=== PATIENT | female | born 1965 | race Two or more races ===

== ENCOUNTER 2025-05-14 09:17 | Outpatient (AMB) | payer MEDICAID, SELFPAY ==
[2025-05-14 09:31] VITALS: BP 144/85; PULSE 67; RESP 19; TEMP 36.4; O2SAT 98; BMI 32.7
--- NOTE | 2025-05-14 09:31 | PD.ORTHCLVIS ---
Vital signs 05/14/25 09:31 Height 1.55 m Height Method Measured Weight 78.5 kg Weight Measurement Method Standing Scale BMI 32.7 BP 144/85 H Blood Pressure Source Automatic Cuff Blood Pressure Location Left Upper Arm Position Sitting Respiration 19 Pulse 67 Pulse Source Monitor Temp 97.5 F Temp Source Temporal Artery Scan Pulse Oximetry (%) 98 Oxygen Delivery Method Room Air Med/Allergies Allergies & Medications Allergies No Known Allergies Allergy (Verified 05/14/25 09:32) Medication Reconciliation meloxicam 7.5 mg tablet 7.5 mg PO QDAY #45 tabs 05/14/25 [Rx] Exam Exam Breathing is nonlabored. Patient has a normal mood and affect. Bilateral extremities were evaluated and demonstrates sensation intact to light touch. Palpable pedal pulses are present. No significant edema is present. Bilateral hips were examined. The patient has no pain with log roll of the hips. Internal rotation to 30 degrees and external rotation to 30 degrees is painless. Negative FADIR. Left knee was examined today. The left knee is in reasonable alignment. Range of motion from 0-120 degrees. Knee is stable to varus and valgus as well as AP translation with <5mm. Patient has a negative McMurrays. There is no pain with patellofemoral compression and no crepitus noted. The knee is nontender to palpation. The right knee was also examined. The right knee is in varus alignment. Range of motion from 0-115 degrees. Knee is stable to varus and valgus as well as AP translation with <5mm. Patient has a positive McMurrays. There is no pain with patellofemoral compression and no crepitus noted. The patient has varicose veins as well and is tender both medially and laterally Assessment and Plan Problem List (1) Pain in right knee: Status: Acute Plan: Patient is a pleasant 60-year-old female with right knee pain. There is mechanical symptoms and she is having significant issues walking. I discussed with her this is likely early arthritis versus a meniscal tear versus a bone contusion or a stress fracture. The pain is actually out of proportion with the x-rays x-ray does not show significant arthritis but she has significant pain. I would like to get an MRI of the right knee to evaluate for other pathology such as a subchondral fracture as her pain is out of proportion with exam Office Procedures GNS Level of Care Nursing/Assessment Patient Status: Initial/New Patient Nursing Assessment/Reassesment: Medication Reconciliation, Update PMH in EMR and Vital Signs Coordination of Care: Complex Care and Chronic Disease 1-5, Education Complex Pt/Fam, Consent,records obtained, informed consent, 1 Ins Authorization, Lab and Imaging orders, Results/Orders obtained and Staff clarify orders New Patient Charge New Patient Point Assignment: 1124 New Patient Point Charge: MILLWRIGHT Level 4 ([id number]) MA Intake Visit Data Collection New Patient or Established: New Patient (never been to [facility]) Reason for Visit:: RIGHT KNEE PAIN Seen by Clinical Staff ONLY (RN/MA): No 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 PCP or OBGYN visit in last 3 months: Yes Hx Now: No Do You Feel Safe at Home: Yes Authorities Contacted: N/A Questionairres Past Medical History Past Medical History Have you ever been diagnosed with any of the following: Cardiology Problems Hypercholesterolemia: Yes Respiratory Problems Smoking: No Smoking Cessation Counseling: No Smoking Exposure: No Endocrine Problems Diabetes Mellitus Type 1: Yes (A1C 6.7) Subjective Visit Visit for: new patient and knee (RIGHT) Immunization / Flu Flu Vaccine in the Last 12 Months: No Flu Vaccine Exclusion Criteria: Refused by Patient History of Present Illness Chief complaint: RIGHT KNEE PAIN Date of injury / onset of symptoms: 2 YEARS Patient is a pleasant 60-year-old female with 2 years of right knee pain that has progressed. She had an injection in March and this helped for about 4 weeks. She also tried naproxen and anti-inflammatories. She is diabetic. She reports the pain is affecting her quality life and happiness. She has been having significant issues walking. She is using a cane She reports that her mechanical issues such as locking Personal History Occupation: NONE BMI Counceling provided: Yes Pain Pain level (0-10): 9 Pain duration: ALL DAY Pain location: inside (medial), outside (lateral), anterior and posterior Pain quality: sharp, dull, aching, burning and other (specify) (SWELLING) Pain timing: night, increases with activity and stairs Associated signs & symptoms: stiffness Ambulatory data Ambulatory device: none Treatments Number of previous injections: 1 (LASTED 3 WEEKS RECEIVED 03/26/2025) Improvement with previous injections: No Number of Physical Therapy sessions: 0 Improvement with PT: No Improvement with NSAIDS: no Review of Systems Review of Systems: All systems negative unless otherwise noted in HPI.
== END 2025-05-14 09:52 | disposition home or self-care (01) ==
LOC: HODSRG 09:17
PROVIDERS: PCP Internal Medicine; Referring Provider Internal Medicine; Supervising Provider Orthopaedic Surgery Adult Reconstructive Orthopaedic Surgery; Visit Provider Orthopaedic Surgery Adult Reconstructive Orthopaedic Surgery
DX: M25.561 Pain in right knee (principal); E10.9 Type 1 diabetes mellitus without complications; E78.00 Pure hypercholesterolemia, unspecified
CPT/HCPCS: 99204; G0463

== ENCOUNTER 2025-06-20 08:18 | Outpatient (AMB) | payer MEDICAID, SELFPAY ==
--- NOTE | 2025-06-20 08:36 | PD.ORTHCLVIS ---
Vital signs 06/20/25 08:37 Height 1.55 m Height Method Stated Weight 79.492 kg Weight Measurement Method Standing Scale BMI 33.0 BP 135/83 H Blood Pressure Source Automatic Cuff Blood Pressure Location Left Upper Arm Position Sitting Respiration 19 Pulse 66 Pulse Source Monitor Temp 97.7 F Temp Source Temporal Artery Scan Pulse Oximetry (%) 97 Oxygen Delivery Method Room Air Med/Allergies Allergies & Medications Allergies No Known Allergies Allergy (Verified 06/20/25 08:38) Medication Reconciliation meloxicam 7.5 mg tablet 7.5 mg PO QDAY #45 tabs 05/14/25 [Rx Confirmed 06/20/25] Exam Exam Breathing is nonlabored. Patient has a normal mood and affect. Bilateral extremities were evaluated and demonstrates sensation intact to light touch. Palpable pedal pulses are present. No significant edema is present. Bilateral hips were examined. The patient has no pain with log roll of the hips. Internal rotation to 30 degrees and external rotation to 30 degrees is painless. Negative FADIR. Left knee was examined today. The left knee is in reasonable alignment. Range of motion from 0-120 degrees. Knee is stable to varus and valgus as well as AP translation with <5mm. Patient has a negative McMurrays. There is no pain with patellofemoral compression and no crepitus noted. The knee is nontender to palpation. The right knee was also examined. The right knee is in varus alignment. Range of motion from 0-115 degrees. Knee is stable to varus and valgus as well as AP translation with <5mm. Patient has a positive McMurrays. There is no pain with patellofemoral compression and no crepitus noted. The patient has varicose veins as well and is tender both medially and laterally Imaging - MRI of the right knee: 05/24/2025, Shows a lot of bone marrow edema and contusions, indicating a large bone bruise on the outside and inside of the knee. There is also a lateral meniscus tear on the outside of the knee. Assessment and Plan Problem List (1) Pain in right knee: Status: Acute Plan: Patient is a pleasant 60-year-old female with right knee pain. ASSESSMENT AND PLAN 1. Right knee pain: The MRI dated 05/24/2025 reveals significant bone marrow edema and contusions, indicative of a substantial bone bruise on both the lateral and medial aspects of the knee. This condition is often associated with stress or overuse and can be linked to arthritis. Additionally, a lateral meniscus tear is present, which is not uncommon given her age and leg alignment. The bone contusion typically improves over time, as evidenced by her current state. The meniscus tear, which is causing more discomfort than catching or locking, often heals without surgical intervention. Allow time for the bone contusion to heal naturally. Surgery is not recommended unless the knee begins to catch or lock. Maintain an active lifestyle, using pain as a guide. A weight loss of even 5 pounds could significantly reduce stress on the knee. If needed, another injection can be administered. If the condition continues to improve without intervention, this approach can be maintained. If the condition does not improve, return for further evaluation. Disability is extended until mid-June, after which a gradual return to work can be attempted. Office Procedures GNS Level of Care Nursing/Assessment Patient Status: Established Patient Nursing Assessment/Reassesment: Medication Reconciliation, Update PMH in EMR and Vital Signs Coordination of Care: Complex Care and Chronic Disease 1-5, Education Complex Pt/Fam, Consent,records obtained, informed consent, Results/Orders obtained and Staff clarify orders Established Patient Charge Established Patient Point Assignment: 95 Established Patient Point Charge: EP Level 3 (80-115) MA Intake Visit Data Collection New Patient or Established: Established Patient (seen at [facility] within 3 years) Reason for Visit:: RIGHT KNEE PAIN/MRI RESULTS Seen by Clinical Staff ONLY (RN/MA): No 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 PCP or OBGYN visit in last 3 months: Yes Hx Now: No Do You Feel Safe at Home: Yes Authorities Contacted: N/A Questionairres Past Medical History Past Medical History Have you ever been diagnosed with any of the following: Cardiology Problems Hypercholesterolemia: Yes Respiratory Problems Smoking: No Smoking Cessation Counseling: No Smoking Exposure: No Endocrine Problems Diabetes Mellitus Type 1: Yes (A1C 6.7) Subjective Visit Visit for: new patient, follow up visit, knee (RIGHT) and MRI (RESULTS) Immunization / Flu Flu Vaccine in the Last 12 Months: No Flu Vaccine Exclusion Criteria: Refused by Patient History of Present Illness Chief complaint: RIGHT KNEE PAIN Date of injury / onset of symptoms: 2 YEARS I, Hair Liu, have obtained verbal consent from the patient, to be recorded during this encounter which may include, but not limited to, medical history, examination, treatment plans, and relevant health information.? Patient was informed that recording will be read and reviewed by myself before inclusion in the medical chart. The patient is a 60-year-old female who presents with right knee pain of significant severity. She reports a decrease in her right knee pain, rating it as a 4 on a scale of 10, down from a previous intensity of 9 or 10. The pain is localized to the lateral aspect of her right knee. She has been resting at home and does not recall any specific trauma that could have caused the pain. However, she suspects overuse might be a contributing factor. She describes a sensation of tightness in her knee, which intensifies when she walks. She was last seen on 03/2025, when she received an injection that provided relief for about a month. She was off work for a month due to her condition but returned for two weeks before the pain worsened. Her primary care physician has placed her on disability until mid-06/2025. She has tried oral anti-inflammatory medications, but they did not provide significant relief. Personal History Occupation: NONE BMI Counceling provided: Yes Pain Pain level (0-10): 4 Pain duration: ALL DAY Pain location: inside (medial), outside (lateral), anterior and posterior Pain quality: sharp, dull, aching, burning and other (specify) (SWELLING) Pain timing: night, increases with activity and stairs Associated signs & symptoms: stiffness Ambulatory data Ambulatory device: none Treatments Number of previous injections: 1 (LASTED 3 WEEKS RECEIVED 03/26/2025) Improvement with previous injections: No Number of Physical Therapy sessions: 0 Improvement with PT: No Improvement with NSAIDS: no Review of Systems Review of Systems: All systems negative unless otherwise noted in HPI.
[2025-06-20 08:37] VITALS: BP 135/83; PULSE 66; RESP 19; TEMP 36.5; O2SAT 97; BMI 33.0
== END 2025-06-20 09:08 | disposition home or self-care (01) ==
LOC: HODSRG 08:18
PROVIDERS: PCP Internal Medicine; Referring Provider Internal Medicine; Supervising Provider Orthopaedic Surgery Adult Reconstructive Orthopaedic Surgery; Visit Provider Orthopaedic Surgery Adult Reconstructive Orthopaedic Surgery
DX: M25.561 Pain in right knee (principal); S83.281A Other tear of lateral meniscus, current injury, right knee, initial encounter; X58.XXXA Exposure to other specified factors, initial encounter; E10.9 Type 1 diabetes mellitus without complications; E78.00 Pure hypercholesterolemia, unspecified
CPT/HCPCS: 99213; G0463